=== PATIENT | male | born 1955 | race Caucasian/White ===

== ENCOUNTER → 2017-01-15 | Outpatient (CLI) | payer BC ==
[2015-10-16 20:14] VITALS: BP 141/75
[~2017-01-15] MED LIST: ATEN25TA PO; CARB200T PO; CYCL10TA2 PO; FENO48TA16 PO; GABA-585 PO; IBUP200T43 PO; LAMO25TA5 PO; LORA0.5T96 PO; OXYC-328 PO; PARO10TA57 PO; PRED-220 PO; ZOLP5TAB PO
--- NOTE | 2017-01-15 14:47 | PAIN ---
DATE OF SERVICE: 01/15/2017 INITIAL CONSULTATION FOR PAIN CLINIC DATE OF SERVICE: 01/15/2017 CHIEF COMPLAINT: Neck and right upper extremity pain. HISTORY OF PRESENT ILLNESS: This is a 61-year-old male who presents with history of pain in the base of the neck, right upper extremity for many years, worse over the past one year or so without any specific injury or action he is aware of, but it is getting worse and worse over the years with activity, steadily increasing in the base of the neck and shoulder on the right posterior shoulder blade to the anterior clavicle into the right posterior deltoid. Posterior and anterior biceps, triceps region and anterior forearm on the right side with some tingling and numbness occasionally in the hand as well with some weakness in the arm, but no specific dropping of items. The patient reports it has been getting steadily worse over the last 10 years and over the last one year has gotten much worse. He reports that he had a fracture in his neck about 10 years ago when he hit it with a table leg when he fell. The patient reports that since that time, the pain has been getting worse, constant, sharp, stabbing, throbbing, shooting, radiating tingling and numbness again in the right hand, burning, cramping and aching. The patient reports it awakens him from sleep at least 2-3 times at night, sometimes more. It does not affect his bowel and bladder control, but does affect his ability to walk as he feels like he is off balance when his right arm is hurting. The patient reports he has tried physical therapy in the past. He has had chiropractic treatments up to recently, also exercises at home on his own with some stretching exercises, feels nothing is really helping. He has tried Percocet, Flexeril, and Motrin. The Percocet and Flexeril helped to some extent, but the Motrin is not helping significantly at all. The patient rates his disability rate from 0-10, 10 being the worst, as a 10 with family and home responsibilities, recreation, occupation and sexual behavior, 8 with social activity, 2 with self care and 4 with life support activities, especially sleeping. The patient did have an MRI scan of the cervical spine showing C6-C7 disk severely narrowed with prominent broad-based posterior disk protrusion extending into the right neural foramen including the central spinal and bilateral foraminal stenosis greater on the right. The patient reports again no loss of motor function with significant fatigability to the right arm compared to the left and has been dropping some items over the last few months with his right hand. He is right hand dominant. PAST MEDICAL HISTORY: Glasses, shortness of breath, COPD, cigarette smoking, hypertension, history of diarrhea, difficulty urinating, arthritis, depression, anxiety and he has findings of DISH syndrome (diffuse idiopathic skeletal hyperostosis). PREVIOUS SURGERY: Includes tonsillectomy in 1962. Nasal polyps in 2005 and precancerous polyps taken out from a colonoscopy in the past. CURRENT MEDICATIONS: Include Motrin, Percocet, Flexeril, Ativan, Benefiber, TriCor, Tegretol, Lamictal, Neurontin, Paxil, and Ambien. ALLERGIES: THE PATIENT IS ALLERGIC TO PENICILLIN AND IV IODINE. SOCIAL HISTORY: The patient smokes about a pack and a half a day on average has for 45 years. Does not drink alcohol, is , lives with his spouse, has no children, living at home, is currently retired and lives locally in [place], [place]. REVIEW OF SYSTEMS: The patient's review of systems is positive for those items mentioned in history of present illness. All systems reviewed and otherwise negative. It is complete, full and well documented on the patient's chart. PHYSICAL EXAMINATION: VITAL SIGNS: Today, the patient's blood pressure is 132/76, pulse 67, respirations 16, temperature 98.0 degrees Fahrenheit, height is 5 feet 8 inches, weight is 239 pounds. GENERAL: The patient is awake, alert, oriented, appropriate, very pleasant demeanor. HEENT: Head shows normocephalic, atraumatic. Extraocular movements are intact, symmetrical. Oral cavity, mucous membranes are moist and pink. Dentition is intact. NECK: Shows anterior throat supple without palpable lymphadenopathy noted. Swallow reflex is symmetrical. CHEST: Shows normal on inspection. Breath sounds are coarse, but clear to auscultation bilaterally. HEART: Shows S1 and S2 clear. No murmurs auscultated. ABDOMEN: Soft, nontender, nondistended. No palpable organomegaly. No rebound or guarding demonstrated. BACK: Shows spine grossly in midline. Normal appearing cervical lordotic curvature, thoracic kyphotic curvature and lumbar lordotic curvature. No previous bruises, lesions, rashes or scars are noted. The patient's neck shows symmetrical on inspection with paraspinous musculature with palpation shows some moderate tenderness throughout the upper, middle and lower distribution of paraspinous muscles bilaterally in cervical distribution, more somewhat on the right than the left in the superior medial and lateral trapezius with some significant tenderness as well and firm rope-like musculature on the right trapezius compared to the left. The patient shows guarded rotational motion of the cervical spine with both very slow right and left lateral rotation but performs this to 45 degrees or further, also extension and flexion are very guarded, very slow, manipulated movements and very tender with extension, but not with forward flexion reported pain, upper extremities show deep tendon reflexes at 1+ in the biceps and triceps tendons on the left and 0/4 in the right triceps tendons, 1+ the anterior biceps tendon. Motor exam is strong with supply chain development manager strength rated at 5/5, bicep and tricep flexion are intact and symmetrical at 5/5 as well. Peripheral pulses are 2+ radial distribution. No peripheral edema is noted. No clubbing, no cyanosis is demonstrated either upper extremity, shoulder shrug is intact and strong without loss of strength or resistance as is abduction of shoulder to 90 degrees bilaterally without loss of strength, but with pain reported in the base of the neck and the right shoulder to posterior deltoid. Options were discussed with the patient and the patient's old chart was reviewed as his current medication regimen updated. IMPRESSION: 1. This is a 61-year-old male with history of cervical pain with radicular pain into the right upper extremity in the C6-C7 dermatome. 2. MRI scan of cervical spine as noted. 3. Diffuse idiopathic skeletal hyperostosis syndrome. 4. Hypertension. 5. Cigarette smoking. PLAN: Options were discussed with the patient and his spouse including conservative medical management, physical therapy and interventional techniques. He would like to pursue interventional techniques. We discussed a cervical epidural steroid injection using description as well as anatomical models to describe the procedure. The patient will wait for preauthorization with his insurance provider. We will try Medrol Dosepak in the meantime. He is given instruction as well as side effects to be aware with the medication and will follow up once preauthorization is obtained and we will plan on cervical epidural steroid injection at that time. BO LYNCH MD DR: Heron JOB#: [id number] / [id number]
== END | disposition home or self-care (01) ==
LOC: PNCL 11:02
PROVIDERS: ATTEND Anesthesiology
DX: M48.02 Spinal stenosis, cervical region (principal); J44.9 Chronic obstructive pulmonary disease, unspecified; F41.9 Anxiety disorder, unspecified; F32.9 Major depressive disorder, single episode, unspecified; I10 Essential (primary) hypertension; F17.210 Nicotine dependence, cigarettes, uncomplicated; Z88.0 Allergy status to penicillin; Z91.041 Radiographic dye allergy status
CPT/HCPCS: 62321; 62323

== ENCOUNTER → 2017-03-04 | Outpatient (CLI) | payer BC ==
[2015-10-16 20:14] VITALS: BP 141/75
[~2017-03-04] MED LIST changes: -IBUP200T43 PO; +IBUP200T44 PO; +methylPREDNISolone ACETATE 40 MG/ML VIAL. ONE; +methylPREDNISolone ACETATE 80 MG/ML VIAL. ONE
--- NOTE | 2017-03-04 12:27 | PAIN ---
DATE OF SERVICE: 03/04/2017 DIAGNOSES: Cervical radiculopathy, cervical degenerative disk disease and cervical herniated disk. HISTORY OF PRESENT ILLNESS: The patient is a 61-year-old male who returns for followup status post initial evaluation and preauthorization for cervical epidural steroid injection. The patient obtained that now, would like to proceed, still complains of significant pain in the base of the neck and shoulder, mostly in the right side into the right arm, radiating as was previously, some low back pain as well, but his main complaint is the neck and shoulder pain on the right. The patient reports it is a 9 on a scale of 10 at its worst, 6 on average, 3 at its least, is a 6 today. The patient reports aching, sharp, dull, tight, shooting, cramping, stabbing and tingling. It is constant, becoming more severe. The patient reports no new motor or sensory deficits or other complaints, but still significant pain, waking him from sleep at night occasionally, not every night, but about every 3-4 hours when it does bother him. He can usually reposition, get out of bed and get back to sleep. The patient reports otherwise no new changes. PHYSICAL EXAMINATION: VITAL SIGNS: The patient's blood pressure 154/86, pulse 78, respirations are 16, temperature 98.3 degrees Fahrenheit, height is 5 feet 8 inches, weight is 240 pounds. GENERAL: The patient is awake, alert, oriented, appropriate, very pleasant demeanor. HEENT: Head shows normocephalic, atraumatic. Extraocular movements are intact and symmetrical. Oral cavity: Mucous membranes moist and pink. Dentition is intact. NECK: Shows anterior throat supple without palpable lymphadenopathy noted. Swallow reflex symmetrical. Neck shows good rotational motion of the cervical spine, both laterally as well as extension and flexion. With inspection of the cervical paraspinous muscle shows symmetrical, with palpation shows some moderate tenderness, more on the right than the left, inferior aspect of the cervical paraspinous musculature in the superior medial trapezius, but without significant radiation. CHEST: Shows normal with inspection. Breath sounds are clear to auscultation bilaterally. HEART: Shows S1, S2 clear. No murmurs auscultated. ABDOMEN: Soft, nontender, nondistended. No palpable organomegaly is noted. No rebound or guarding demonstrated. BACK: Shows spine grossly in the midline. EXTREMITIES: Upper extremities show deep tendon reflexes at 1+/4 in the biceps and triceps tendons. Motor exam is 5/5 with bicep, tricep flexion as well as customs compliance specialist strength bilaterally. Peripheral pulses 2+ radial distribution. No peripheral edema is noted. Options were discussed with the patient. The patient's old chart was reviewed, his current medication regimen updated. Current review of systems updated today as well. We will proceed with a cervical epidural steroid injection today with fluoroscopic guidance. Risks were discussed including but not limited to bleeding, infection, possibility of epidural hematoma, subsequent neurologic compromise, dural puncture, headaches, spinal cord and/or nerve damage, side effects of steroid medication and poor results regarding pain control. The patient understands and wished to proceed. He is to return to clinic in approximately 2 weeks for followup. He was counseled on return appointment, activity level and side effects to be aware of. DIAGNOSES: Cervical radiculopathy, cervical degenerative disk disease, cervical herniated disk. PROCEDURE: Cervical epidural steroid injection, translaminar approach C6 level using C-arm fluoroscopic guidance under sterile prep and drape using local anesthetic. MEDICATION INJECTED: A total of 120 mg Depo-Medrol plus 5 mL preservative free normal saline and 2 mL of Isovue for contrast. CONDITION AT DISCHARGE: Stable. The patient tolerated procedure well, had no complications. BO LYNCH MD DR: DONAVON/carina JOB#: [id number] / [id number]
== END | disposition home or self-care (01) ==
LOC: PNCL 10:58
PROVIDERS: ATTEND Anesthesiology
DX: M50.123 Cervical disc disorder at C6-C7 level with radiculopathy (principal); Z91.041 Radiographic dye allergy status; Z88.0 Allergy status to penicillin
CPT/HCPCS: 62321; J1030; J1040